=== PATIENT | female | born 1930 | race Caucasian/White ===

== ENCOUNTER 2017-02-12 10:38 | Emergency (ER) | payer OTHER, BC ==
[2017-02-12 10:48] VITALS: BP 128/78; PULSE 90; TEMP 98; BMI 21.1
--- NOTE | 2017-02-12 11:22 | PDOC ---
History of Present Illness - General History Source: Family Exam Limitations: No Limitations - History of Present Illness Initial Comments: 02/12/17 11:26 The patient is a 86-year-old female accompanied by daughter, with a significant past medical history of afib, hypertension, seizures, and early alzheimers, who presents to the ED with altered mental status. Daughter was driving the pt to an appointment with her PCP. While in the car, the pt began to complain that she was not feeling well. Soon after the patient began feeling short of breath, gasping for air, and grabbing her chest. Daughter states that the pts eyes did not appear to be rolling back and she was unsure if she was experiencing a seizure. She decided to take the pt to her PCP since she was close to the office. PCP advised the patient to report to the ED for further evaluation. Pt does report that she has not had breakfast today and did not take any of her medications. On exam, pt states that she does not recall the event but does remember being in the car. Patient denies any fever, chills, nausea or vomiting. PCP: Dr. Avila <Lakshmi Lr - Last Filed: 02/12/17 11:43> <Sol Morelos - Last Filed: 02/12/17 14:15> - General Chief Complaint: Altered Mental Status Stated Complaint: SEIZURE (PCP SENT) Time Seen by Provider: 02/12/17 11:00 Past History <Lakshmi Lr - Last Filed: 02/12/17 11:43> - Past Medical History Cardiac Disorders: Yes (a-fib) HTN: Yes Seizures: Yes (seizure) - Immunization History Immunization Up to Date: Yes - Psycho/Social/Smoking Cessation Hx Anxiety: No Suicidal Ideation: No Smoking Status: No Smoking History: Never smoked Number of Cigarettes Smoked Daily: 0 Hx Alcohol Use: No Drug/Substance Use Hx: No Substance Use Type: None <Sol Morelos - Last Filed: 02/12/17 14:15> - Past Medical History Allergies/Adverse Reactions: Allergies Allergy/AdvReac Type Severity Reaction Status Date / Time lamotrigine [From Lamictal] Allergy Intermediate Rash Verified 02/12/17 10:43 Home Medications: Ambulatory Orders Digoxin [Lanoxin -] 0.25 mg PO DAILY #0 tablet 08/11/13 Diltiazem [Cardizem -] 60 mg PO DAILY #0 tablet 08/11/13 Levetiracetam [Keppra -] 500 mg PO BID #0 tablet 08/11/13 Dabigatran Etexilate Mesylate [Pradaxa -] 150 mg PO BID #0 cap 08/14/13 Pravastatin Sodium 20 mg PO HS 04/10/15 Memantine HCl [Namenda -] 5 mg PO DAILY 02/12/17 Review of Systems - Review of Systems Able to Perform ROS?: Yes Comments:: 02/12/17 11:43 GENERAL/CONSTITUTIONAL: No fever or chills. No weakness. HEAD, EYES, EARS, NOSE AND THROAT: No change in vision. No ear pain or discharge. No sore throat. CARDIOVASCULAR: No chest pain or shortness of breath. RESPIRATORY: No cough, wheezing, or hemoptysis. SKIN: No rash GASTROINTESTINAL: No nausea, vomiting, diarrhea or constipation. GENITOURINARY: No dysuria, frequency, or change in urination. MUSCULOSKELETAL: No joint or muscle swelling or pain. No neck or back pain. NEUROLOGIC: No headache, vertigo, loss of consciousness, or change in strength/ sensation. ENDOCRINE: No increased thirst. No abnormal weight change. HEMATOLOGIC/LYMPHATIC: No anemia, easy bleeding, or history of blood clots. ALLERGIC/IMMUNOLOGIC: No hives or skin allergy. <Lakshmi Lr - Last Filed: 02/12/17 11:43> *Physical Exam - Vital Signs Last Vital Signs Temp Pulse Resp BP Pulse Ox 98 F 90 19 128/78 97 02/12/17 10:43 02/12/17 10:43 02/12/17 10:43 02/12/17 10:43 02/12/17 10:43 <Lakshmi Lr - Last Filed: 02/12/17 11:43> - Vital Signs Last Vital Signs Temp Pulse Resp BP Pulse Ox 98 F 90 19 128/78 97 02/12/17 10:43 02/12/17 10:43 02/12/17 10:43 02/12/17 10:43 02/12/17 10:43 - Physical Exam Comments: GENERAL: Awake, alert, and oriented to person (not time and place), in no acute distress HEAD: No signs of trauma EYES: PERRLA, EOMI, sclera anicteric, conjunctiva clear ENT: Auricles normal inspection, hearing grossly normal, nares patent, oropharynx clear without exudates. Moist mucosa NECK: Normal ROM, supple, no lymphadenopathy, JVD, or masses LUNGS: Breath sounds equal, clear to auscultation bilaterally. No wheezes, and no crackles HEART: Regular rate and rhythm, normal S1 and S2, no murmurs, rubs or gallops ABDOMEN: Soft, nontender, normoactive bowel sounds. No guarding, no rebound. No masses EXTREMITIES: Normal range of motion, no edema. No clubbing or cyanosis. No cords, erythema, or tenderness NEUROLOGICAL: Cranial nerves II through XII grossly intact. Normal speech, normal gait SKIN: Warm, Dry, normal turgor, no rashes or lesions noted. <Sol Morelos - Last Filed: 02/12/17 14:15> ED Treatment Course - LABORATORY CBC & Chemistry Diagram: 02/12/17 11:35 02/12/17 11:35 <Sol Morelos - Last Filed: 02/12/17 14:15> Medical Decision Making - Medical Decision Making 02/12/17 14:14 Case d/w Dr. Avila, who evaluated patient earlier today in office. No acute findings on CTH, CXR, labs, and UA. He agrees with discharge home. <Sol Morelos - Last Filed: 02/12/17 14:15> *DC/Admit/Observation/Transfer - Attestations Scribe Attestion: 02/12/17 11:44 Documentation prepared by Lakshmi Lr, acting as medical aides teacher for Sol Morelos MD. <Lakshmi Lr - Last Filed: 02/12/17 11:43> - Discharge Dispostion Admit: No <Sol Morelos - Last Filed: 02/12/17 14:15> Diagnosis at time of Disposition: Seizure Qualifiers: Convulsion type: unspecified Qualified Code(s): R56.9 - Unspecified convulsions - Discharge Dispostion Disposition: HOME Condition at time of disposition: Improved - Referrals Referrals: Lukasz Avila MD [Primary Care Provider] - - Patient Instructions Printed Discharge Instructions: DI for Seizure Disorder -- Adult
[2017-02-12] MEDS ORDERED: DIGOXIN 0.25 MG TABLET (FP) PO ONE (11:24)
[2017-02-12] MEDS ORDERED: dilTIAZem HCL 60 MG TABLET (FP) PO ONE (11:24)
[2017-02-12] MEDS ORDERED: levETIRAcetam 500 MG TABLET (FP) PO ONE ×2 (11:24→11:58)
[2017-02-12] MEDS ORDERED: MEMANTINE HCL 5 MG TABLET (UD) PO ONE (11:24)
[2017-02-12 11:57] LABS: BASOPHIL 0.6 % (0-2.0); EOSINOPHIL 0.5 % (0-4.5); MCH 31.2 pg (25.7-33.7); MCHC 33.2 g/dl (32.0-36.0); MEAN CELL VOLUME 93.9 fl (80-96); MEAN PLT VOLUME 7.3 fl (7.5-11.1); PLATELET COUNT 193 K/MM3 (134-434); RDW 13.6 % (11.6-15.6)
[2017-02-12] MEDS ORDERED: DIGOXIN 0.25 MG TABLET (FP) ONE (11:57)
[2017-02-12] MEDS ORDERED: dilTIAZem HCL 60 MG TABLET (FP) ONE (11:57)
[2017-02-12 12:23] LABS: INR 1.28 (0.82-1.09); PROTHROMBIN TIME (PATIENT) 14.1 SEC (9.98-11.88)
[2017-02-12 12:47] LABS: ALBUMIN 3.8 g/dl (3.4-5.0); ANION GAP 7 (8-16); BILIRUBIN,TOTAL 0.6 mg/dL (0.2-1.0); CALCIUM 9.1 mg/dL (8.5-10.1); CO2 30 mmol/L (21-32); CREATININE 0.7 mg/dL (0.55-1.02); GLUCOSE,RANDOM 97 mg/dL (74-106); SGOT/AST 16 U/L (15-37); SGPT/ALT 22 U/L (12-78); TOT PROT 7.3 g/dl (6.4-8.2)
[2017-02-12 12:59] LABS: ALK PHOS 54 U/L (45-117); DIGOXIN LEVEL 1.1819 ng/ml (0.8-2.0)
[2017-02-12 13:39] LABS: URINE APPEARANCE CLEAR; URINE BILIRUBIN NEGATIVE (NEGATIVE); URINE BLOOD NEGATIVE (NEGATIVE); URINE COLOR YELLOW; URINE GLUCOSE (UA) NEGATIVE (NEGATIVE); URINE KETONE NEGATIVE (NEGATIVE); URINE LEUK ESTERASE TRACE (NEGATIVE); URINE NITRITE NEGATIVE (NEGATIVE); URINE PROTEIN NEGATIVE (NEGATIVE); URINE UROBILINOGEN NEGATIVE mg/dL (0.2-1.0)
[2017-02-12 14:49] LABS: URINE MUCUS RARE; URINE RBC 15 /hpf (0-3); URINE WBC 3 /hpf (3-5)
--- NOTE | 2017-02-13 13:33 | EKG ---
Test Reason : Blood Pressure : / mmHG Vent. Rate : 098 BPM Atrial Rate : 113 BPM P-R Int : 000 ms QRS Dur : 066 ms QT Int : 330 ms P-R-T Axes : 000 -04 -30 degrees QTc Int : 421 ms ATRIAL FIBRILLATION NONSPECIFIC ST AND T WAVE ABNORMALITY ABNORMAL ECG WHEN COMPARED WITH ECG OF 10-APR-2015 10:08, NO SIGNIFICANT CHANGE WAS FOUND Confirmed by ALIX POTTER, CROW ([id number]) on 02/13/2017 1:32:42 PM Referred By: Confirmed By:CROW THOMSON MD
== END 2017-02-12 14:42 | disposition home or self-care (01) ==
LOC: JER 10:38
DX: R56.9 Unspecified convulsions (principal); I10 Essential (primary) hypertension; I48.91 Unspecified atrial fibrillation; G30.0 Alzheimer's disease with early onset
CPT/HCPCS: 36415; 70450-TC; 71010-TC; 80053; 80162; 81003; 81015; 85025; 85610; 87086; 93005; 93010; 99283-25

== ENCOUNTER 2017-07-19 07:04 | Observation (INO) | payer OTHER, BC ==
--- NOTE | 2017-07-19 08:44 | PDOC ---
History of Present Illness - General History Source: Patient Exam Limitations: No Limitations - History of Present Illness Initial Comments: 07/19/17 13:10 The patient is a 87-year-old female with a significant past medical history of a -fib (on pradaxa), HTN, seizures (on keppra), and mild dementia, who presents to the emergency department s/p unwitnessed fall from home and lip laceration/ facial trauma at 4:30 am today. As per daughter, the patient was in her usual state of health yesterday. Patient reports she was going to the bathroom for a bowel movement and to urinate. Patient states she remembers sitting on the toilet bowl and getting up to clean. She reports she began to feel unwell and dizzy. Patient does not recall whether she had pain. Patient is unable to recall exact circumstances of the injury. As per daughter, the patient called out for help at 5 am and was found on the floor. Daughter observed loose stools and blood on the bathroom floor. Daughter reports the patient was shaking due to cold, and the patient required assistance going back to her room. At baseline , the patient is ambulatory without assistance. Daughter noticed a large upper lip laceration. The patient reports associated nasal tenderness. As per daughter , the patients head was not near the loose stools. Patients last tetanus shot was 4-5 years ago. Patient did not take her medications this morning. Upon interview, the patient denies chest pain, neck pain, shortness of breath, and headache. The patient denies fever, chills, abdominal pain, nausea, vomit, and constipation. Allergies: lamotrigine (from Lamictal) PCP: Dr. Avila <Jahaira Marx - Last Filed: 07/19/17 13:35> - History of Present Illness Initial Comments: 07/19/17 08:42 <Bud Alatorre - Last Filed: 07/20/17 07:44> - General Chief Complaint: Injury Stated Complaint: FALL/ INJURY TO MOUTH Time Seen by Provider: 07/19/17 08:14 Past History <Jahaira Marx - Last Filed: 07/19/17 13:35> - Past Medical History Cardiac Disorders: Yes (a-fib) COPD: No HTN: Yes Seizures: Yes (seizure) - Immunization History Immunization Up to Date: Yes - Suicide/Smoking/Psychosocial Hx Smoking Status: No Smoking History: Never smoked Have you smoked in the past 12 months: No Number of Cigarettes Smoked Daily: 0 Information on smoking cessation initiated: No Hx Alcohol Use: No Drug/Substance Use Hx: No Substance Use Type: None <Bud Alatorre - Last Filed: 07/20/17 07:44> - Past Medical History Allergies/Adverse Reactions: Allergies Allergy/AdvReac Type Severity Reaction Status Date / Time lamotrigine [From Lamictal] Allergy Intermediate Rash Verified 07/19/17 07:28 Home Medications: Ambulatory Orders Digoxin [Lanoxin -] 0.25 mg PO DAILY #0 tablet 08/11/13 Diltiazem [Cardizem -] 60 mg PO DAILY #0 tablet 08/11/13 Levetiracetam [Keppra -] 500 mg PO BID #0 tablet 08/11/13 Dabigatran Etexilate Mesylate [Pradaxa -] 150 mg PO BID #0 cap 08/14/13 Pravastatin Sodium 20 mg PO HS 04/10/15 Memantine HCl [Namenda -] 5 mg PO HS 02/12/17 Review of Systems - Review of Systems Able to Perform ROS?: Yes Comments:: 07/19/17 13:10 CONSTITUTIONAL: No reported: Fever, Chills, Diaphoresis, Generalized Weakness, Malaise, Loss of Appetite HEENT: (+) lip laceration No reported: Rhinorrhea, Nasal Congestion, Throat Pain, Throat Swelling, Difficulty Swallowing, Mouth Swelling, Ear Pain, Eye Pain, Visual Changes CARDIOVASCULAR: No reported: Chest Pain, Syncope, Palpitations, Irregular Heart Rate, Lightheadedness, Peripheral Edema RESPIRATORY: No reported: Cough, Shortness of Breath, SOB with Exertion, Orthopnea, Wheezing , Stridor, Hemoptysis GASTROINTESTINAL: No reported: Abdominal pain, Abdominal Distension, Nausea, Vomiting, Diarrhea, Constipation, Melena, Hematochezia GENITOURINARY: No reported: Dysuria, Frequency, Urgency, Hesitancy, Flank Pain, Genital Pain MUSCULOSKELETAL: No reported: Myalgia, Arthralgia, Joint Swelling, Back pain, Neck Pain SKIN: No reported: Rash, Itching, Pallor HEMEATOLOGIC/IMMUNOLOGIC: No reported: Easy Bleeding, Easy Bruising, Lymphadenopathy, Frequent infections ENDOCRINE: No reported: Unexplained Weight Gain, Unexplained Weight Loss, Heat Intolerance , Cold Intolerance NEUROLOGIC: No reported: Headache, Focal Weakness, Paresthesias, Vertigo, Lightheadedness, Unsteady Gait, Seizure, Mental Status Changes, Incontinence PSYCHIATRIC: No reported: Anxiety, Depression <Jahaira Marx - Last Filed: 07/19/17 13:35> *Physical Exam - Vital Signs Last Vital Signs Temp Pulse Resp BP Pulse Ox 97.7 F 114 H 18 124/58 98 07/19/17 07:28 07/19/17 07:28 07/19/17 07:28 07/19/17 07:28 07/19/17 09:04 - Physical Exam Comments: 07/19/17 13:10 GENERAL: The patient is awake, alert, and fully oriented, Nontoxic - in no acute distress. HEAD: Normocephalic, through and through laceration on uppper lip that crosses bre border, poor dentition. Mild tenderness in the maxilla midline EYES: extraocular movements intact, sclera anicteric, conjunctiva clear. ENT: Normal voice, Moist mucous membranes. NECK: Normal range of motion, supple, No midline spinal tenderness in cervical/ thoracic/lumbar region. LUNGS: Breath sounds equal, clear to auscultation bilaterally. No wheezes, no rhonchi, no rales. HEART: irregularly iregular ABDOMEN: Soft, nontender, normoactive bowel sounds. No guarding, no rebound. . No CVA tenderness EXTREMITIES: Normal range of motion without any pain/tenderness, no edema. No clubbing or cyanosis. No cords, erythema, or tenderness. NEUROLOGICAL: No facial assymetry, Normal speech, PSYCH: Normal mood, normal affect. SKIN: Warm, Dry, normal turgor <Jahaira Marx - Last Filed: 07/19/17 13:35> - Vital Signs Last Vital Signs Temp Pulse Resp BP Pulse Ox 97.7 F 114 H 18 124/58 97 07/19/17 07:28 07/19/17 07:28 07/19/17 07:28 07/19/17 07:28 07/19/17 07:28 <Bud Alatorre - Last Filed: 07/20/17 07:44> Procedures - Consent Consent obtained: Verbal - Laceration/Wound Repair Upper Lip Wound Length: 2.6 to 5.0 cm Wound Explored: clean Wound's Depth, Shape: superficial Irrigated w/ Saline: Yes Anesthesia: 1% Lidocaine Wound Debrided: minimal Wound Repaired With: Sutures Suture Size/Type: 4:0 Number of Sutures: 7 Layer Closure: No <Bud Alatorre - Last Filed: 07/20/17 07:44> Heart Score/ECG Review - ECG Impressions Comment:: 07/19/17 09:47 Twelve-lead EKG was performed and reviewed by me. Irregularly irregular Rate of [address]-T wave changes <Bud Alatorre - Last Filed: 07/20/17 07:44> ED Treatment Course - LABORATORY CBC & Chemistry Diagram: 07/19/17 09:41 07/19/17 09:41 - ADDITIONAL ORDERS Additional order review: Laboratory Results 07/19/17 09:41 PT with INR 15.00 H INR 1.33 H 07/19/17 09:41 RBC 4.86 MCV 94.4 MCHC 32.9 RDW 13.4 MPV 7.2 L Neutrophils % 89.6 H D Lymphocytes % 6.2 L D Monocytes % 3.7 L Eosinophils % 0.3 Basophils % 0.2 - RADIOLOGY Radiograph Interpretation: 07/19/17 11:20 RAD/CXR PORTABLE IMPRESSION: No evidence of active pulmonary disease. Reported by: Dr. Garfield Decker HEAD CT W/O CONTRAST IMPRESSION: No significant interval change or acute intracranial pathology is identified. Reported by: Dr. Ch FACIAL BONES CT W/O CONTRAST IMPRESSION: No evidence of acute facial bone fracture. Reported by: Dr. Perez - Additional Consults Time Called: 11:43 (Paged Dr. Chaudhary) Time Called: 12:35 (Second page to Dr. Chaudhary) Consult/PCP: Page returned by Dr. Chaudhary. <Jahaira Marx - Last Filed: 07/19/17 13:35> - LABORATORY CBC & Chemistry Diagram: 07/19/17 09:41 07/19/17 09:41 <Bud Alatorre - Last Filed: 07/20/17 07:44> Medical Decision Making - Medical Decision Making 07/19/17 09:34 87y F hx of dementia, afib on pradaxa, seizure, htn presents s/p syncope. +lip laceration/facial trauma no overt pain, sob, diaphoersis, n/v, prior to syncope, but pt states she just diddnt feel right. on exam pt has through and throuhg lip lac that will need repair tetanus UTD per family consider ?seizure in ddx will obtain CT head, facial bones to r/o bleed, fx will obtain blood work to screen for anemia, metabolic dernagment, acs [facility] pt on telemetry for arrhtmia 07/19/17 11:39 laceration closed by resident Demetrio with good approximation I was there for tracy portions of the procedure pts ct head, facial bones neg labs unremarkable will place in tele metry observatoin for arrythmia monitoring wlil notify dr. sanz regarding admission 07/19/17 12:[address] stephanie butler with tele observation requested ocnsultation from cardiology and neurology (Lindsey/Abhishek) Case discussed in detail with admitting physician including history, physical exam and ancillary studies. Admitting physician has assumed care for the patient, will follow all pending diagnostics and will complete the evaluation and treatment. <Bud Alatorre - Last Filed: 07/20/17 07:44> *DC/Admit/Observation/Transfer - Attestations Scribe Attestion: 07/19/17 13:11 Documentation prepared by Jahaira Marx, acting as medical staff director for Bud Alatorre MD, /DO. <Jahaira Marx - Last Filed: 07/19/17 13:35> - Discharge Dispostion Admit: Yes <Bud Alatorre - Last Filed: 07/20/17 07:44> Diagnosis at time of Disposition: Anticoagulant long-term use Atrial fibrillation Qualifiers: Atrial fibrillation type: chronic Qualified Code(s): I48.2 - Chronic atrial fibrillation Syncope Qualifiers: Syncope type: unspecified Qualified Code(s): R55 - Syncope and collapse Lip laceration Qualifiers: Encounter type: initial encounter Qualified Code(s): S01.511A - Laceration without foreign body of lip, initial encounter Head injury due to trauma Qualifiers: Encounter type: initial encounter Qualified Code(s): S09.90XA - Unspecified injury of head, initial encounter - Discharge Dispostion Condition at time of disposition: Stable
[2017-07-19 10:08] LABS: BASO % 0.2 % (0-2.0); EOS % 0.3 % (0-4.5); HEMATOCRIT 45.9 % (32.4-45.2); HEMOGLOBIN 15.1 GM/dL (10.7-15.3); LYMPH % 6.2 % (8-40); MCHC 32.9 g/dl (32.0-36.0); MEAN CELL VOLUME 94.4 fl (80-96); MEAN PLT VOLUME 7.2 fl (7.5-11.1); MONO % 3.7 % (3.8-10.2); NEUT % 89.6 % (42.8-82.8); PLATELET COUNT 198 K/MM3 (134-434); RBC 4.86 M/mm3 (3.60-5.2); RDW 13.4 % (11.6-15.6); WHITE BLOOD COUNT 12.1 K/mm3 (4.0-10.0)
[2017-07-19 10:32] LABS: INR 1.33 (0.82-1.09)
[2017-07-19] MEDS ORDERED: LIDOCAINE HCL 2% (20ML MULTI-DOSE VIAL) NR ONE (10:42)
[2017-07-19 11:03] LABS: ALBUMIN 3.8 g/dl (3.4-5.0); ANION GAP 7 (8-16); BLOOD UREA NITROGEN 18 mg/dL (7-18); CALCIUM 9.4 mg/dL (8.5-10.1); CHLORIDE 106 mmol/L (98-107); CO2 28 mmol/L (21-32); CREATININE 0.8 mg/dL (0.55-1.02); GLUCOSE,RANDOM 106 mg/dL (74-106); POTASSIUM 5.4 mmol/L (3.5-5.1); SGOT/AST 18 U/L (15-37); SGPT/ALT 18 U/L (12-78); SODIUM 141 mmol/L (136-145)
[2017-07-19 11:08] LABS: ALK PHOS 61 U/L (45-117); BILIRUBIN,TOTAL 0.5 mg/dL (0.2-1.0); TOT PROT 7.7 g/dl (6.4-8.2)
[2017-07-19] MEDS ORDERED: DIGOXIN 0.25 MG TABLET (FP) PO ONE (11:38)
[2017-07-19] MEDS ORDERED: levETIRAcetam 500 MG TABLET (FP) PO ONE ×2 (11:38→21:54)
[2017-07-19] MEDS ORDERED: dilTIAZem HCL 60 MG TABLET (FP) PO ONE (11:38)
[2017-07-19 13:52] LABS: CHOLESTEROL 220 mg/dL (50-200); MAGNESIUM 2.4 mg/dL (1.8-2.4); TRIGLYCERIDES 93 mg/dL (35-160)
[2017-07-19 14:10] LABS: HDL CHOLESTEROL 66 mg/dL (40-60); LDL CHOLESTEROL (ONLY SJRH) 136 mg/dL (5-100)
--- NOTE | 2017-07-19 16:35 | EKG ---
Test Reason : Blood Pressure : / mmHG Vent. Rate : 118 BPM Atrial Rate : 241 BPM P-R Int : 000 ms QRS Dur : 070 ms QT Int : 270 ms P-R-T Axes : 000 004 209 degrees QTc Int : 378 ms ATRIAL FIBRILLATION WITH RAPID VENTRICULAR RESPONSE ABNORMAL ECG WHEN COMPARED WITH ECG OF 12-FEB-2017 11:39, T WAVE INVERSION NOW EVIDENT IN LATERAL LEADS CLINICAL CORRELATION IS RECOMMENDED Confirmed by ALIX POTTER, CROW ([id number]) on 07/19/2017 4:35:34 PM Referred By: Confirmed By:CROW THOMSON MD
--- NOTE | 2017-07-19 16:48 | CON.CARD ---
Consult Consult Specialty:: cardiology Referred by:: hospitalist (paulina sanz) - History of Present Illness Chief Complaint: syncope History of Present Illness: 87 yo female presents to the emergency department s/p unwitnessed fall from home and lip laceration. per ER notes: Patient reported she was going to the bathroom for a bowel movement and to urinate. Patient stated she remembers sitting on the toilet bowl and getting up to clean. She reports she began to feel unwell and dizzy. She was unable to recall exact circumstances of the injury. As per daughter, the patient called out for help at 5 am and dtr found her on the floor. Daughter observed loose stools and blood on the bathroom floor, and noted large lac on patient's lip. At present, pt does not recall details that occurred in the bathroom or the prodromal sx's she had. she's had no new neuro deficits noted in ER, dtrs concur. she ambulates on her own at baseline. she rarely drinks po fluids b/c doesn't want to have to urinate often--dtr states pt has been advised many times the need to incr fluids but she's declined. pt currently denies new neuro deficit, cp, sob, palpitations PMH: afib HTN seizure disorder - Past Medical History Cardio/Vascular: Yes: AFIB, HTN, Hyperlipdemia - Past Surgical History Past Surgical History: Yes: Cataract Removal - Alcohol/Substance Use Hx Alcohol Use: No History of Substance Use: reports: None - Smoking History Smoking history: Never smoked Have you smoked in the past 12 months: No Aproximately how many cigarettes per day: 0 - Social History ADL: Independent History of Recent Travel: No Home Medications - Allergies Allergies/Adverse Reactions: Allergies Allergy/AdvReac Type Severity Reaction Status Date / Time lamotrigine [From Lamictal] Allergy Intermediate Rash Verified 07/19/17 07:28 - Home Medications Home Medications: Ambulatory Orders Digoxin [Lanoxin -] 0.25 mg PO DAILY #0 tablet 08/11/13 Diltiazem [Cardizem -] 60 mg PO DAILY #0 tablet 08/11/13 Levetiracetam [Keppra -] 500 mg PO BID #0 tablet 08/11/13 Dabigatran Etexilate Mesylate [Pradaxa -] 150 mg PO BID #0 cap 08/14/13 Pravastatin Sodium 20 mg PO HS 04/10/15 Memantine HCl [Namenda -] 5 mg PO HS 02/12/17 Family Disease History - Family Disease History Family Disease History: Other: Daughter (arthritis) Review of Systems - Review of Systems Constitutional: denies: Chills, Fever Eyes: denies: Eye Pain HENT: denies: Nasal Congestion Neck: denies: Stiffness Cardiovascular: denies: Palpitations Respiratory: denies: Orthopnea, PND Gastrointestinal: denies: Diarrhea, Rectal Bleeding Genitourinary: denies: Burning, Hematuria Musculoskeletal: denies: Muscle Pain Integumentary: denies: Rash Neurological: reports: Syncope. denies: Numbness, Seizure Endocrine: denies: Excessive Sweating Hematology/Lymphatic: denies: Excessive Bleeding Vital Signs: Vital Signs Temperature 97.7 F 07/19/17 07:28 Pulse Rate 98 H 07/19/17 15:10 Respiratory Rate 18 07/19/17 15:10 Blood Pressure 91/60 07/19/17 15:10 O2 Sat by Pulse Oximetry (%) 96 07/19/17 15:10 Constitutional: Yes: Well Nourished, No Distress Eyes: No: Sclera Icterus HENT: No: Nasal Congestion Neck: No: Decreased ROM Respiratory: Yes: CTA Bilaterally. No: Accessory Muscle Use, Rales, Wheezes Gastrointestinal: Yes: Normal Bowel Sounds. No: Distention, Hepatomegaly, Palpable Mass, Tenderness Cardiovascular: Yes: Regular Rate and Rhythm JVD: No Carotid Bruit: No PMI: Non-Displaced Heart Sounds: Yes: S1, S2. No: Gallop Murmur: No: Systolic Murmur, Diastolic Murmur Musculoskeletal: Yes: Other (No kyphosis) Extremities: No: Cold, Cyanosis Edema: No Peripheral Pulses: 2+ Left Carotid, 2+ Right Carotid, 2+ Left Doralis Pedis, 2+ Right Dorsalis Pedis Integumentary: No: Jaundice Neurological: Yes: Alert. No: Seizure Psychiatric: No: Agitated - Other Data Labs, Other Data: CBC, BMP 07/19/17 09:41 07/19/17 09:41 INR, PTT INR 1.33 (0.82-1.09) H 07/19/17 09:41 Troponin, BNP 07/19/17 09:41 Troponin I < 0.02 Troponin, BNP 07/19/17 09:41 Troponin I < 0.02 Assessment/Plan ECG: afib; diffuse NSST-T slightly more prominent than prior CXR: clear lungs/pleura CT head: no acute path (no old infarct) Echo 04/2015: normal LV/RV size and function, mod TR, normal RVSP h/o syncope: -here 2014 with syncope x 2 on DOA--once bending over to get something, once standing and walking. orthostatic VSs were WNL then, telemetry was benign (afib with good HR control). -now back with unwitnessed syncope--setting in which it occurred (post- defecation) and prodrome are both suggestive of vasovagal event. -rec neuro eval to r/o sz given feces noted on floor. -check orthostatics. -monitor telemetry -rpt echo -doubt atyp ACS; ECG ST-Ts at baseline slightly more pronounced here. check serial troponins -pt and dtrs advised of importance of po hydration, though the family is very skeptical she will do so. -trial of abdominal binder here. permanent Afib: -previous regimen here in 2014 was digoxin, diltiazem with good HR control then -cont dilt, dig for now (level good here). confirm home doses (digoxin 0.25? diltiazem 60 daily?). -has been on pradaxa for AC as outpt, patricia jose. -would not rec continuing this agent given pt's falls/head trauma risk. while there's an antidote available, many (all?) observational studies show a higher rate of bleeding with pradaxa than eliquis or xarelto. since eliquis appears to have the lowest bleeding rates, would change to this agent (5 bid dose). -CHADS VASC = 4, approx 4%/year risk of stroke. -given pt's syncope was highly likely due to vasovagal phenomenon, recommend aggressive measures at preventing vasovagal syncope recurrence, as above. -if these efforts fail (hydration likely not to improve per family--see above), and if pt has another event, then at that time would recommend against long- term anticoagulation given the hi risks of head trauma in that setting (likely > sroke risk above), and would rec LA appendage closure (Watchman) be considered. -she needs close outpt cardio f/u to optimize syncope risk as above, and make appropriate rec.s going forward--family verbalized understanding of need to f/u with dr jose. HTN: -well controlled -tolerate mild elevations to minimize risk of recurrent syncope h/o sz disorder -on meds as outpt
[2017-07-19 17:44] VITALS: BMI 21.2
[2017-07-19 19:21] LABS: URINE APPEARANCE SLCLOUDY; URINE BILIRUBIN NEGATIVE (NEGATIVE); URINE BLOOD NEGATIVE (NEGATIVE); URINE COLOR YELLOW; URINE GLUCOSE (UA) NEGATIVE (NEGATIVE); URINE KETONE NEGATIVE (NEGATIVE); URINE NITRITE NEGATIVE (NEGATIVE); URINE PROTEIN NEGATIVE (NEGATIVE)
[2017-07-19 19:49] LABS: URINE LEUK ESTERASE 3+ (NEGATIVE)
[2017-07-19 19:50] LABS: EPI CELLS RARE /HPF (FEW); URINE MUCUS MODERATE
--- NOTE | 2017-07-19 21:04 | HP ---
Admitting History and Physical - Primary Care Physician PCP: Lukasz Avila - Admission Chief Complaint: Transient Loss of Conciousness with Head trauma History of Present Illness: 87 yrs old F lives at home H/o HTN, Chronic Afib, Dementia, Seizures disorders brought in by family for evaluation of unwitnessed fall with transient loss of consciousness and facial richardson, apparently patient was in toilet remember sitting on toilet and passed urine and defecated, felt dizzy and unwell when tried to get to wash and landed on the floor daughter found her on the floor, bleeding from lip and soiled in feces and urine, patient was alert but confused, no witnessed seizure or focal wetness, patient provided consistent account of event to daughters and providers, no c/o chest pain, SOB, palpitayion, vomiting or focal weakness, on arrival to ED EKG afib with RVR and non specific St T changes, lip tear stiched and patient is evaluated by Cardiology consult is being admitted to for evaluation of syncope, at the time of examination patient denies any chest pain, dfocal weakness or Heda ache Ct Head no acute changes. - Past Medical History Cardiovascular: Yes: AFIB, HTN, Hyperlipdemia - Past Surgical History Past Surgical History: Yes: Cataract Removal - Smoking History Smoking history: Never smoked Have you smoked in the past 12 months: No Aproximately how many cigarettes per day: 0 - Alcohol/Substance Use Hx Alcohol Use: No History of Substance Use: reports: None - Social History ADL: Independent History of Recent Travel: No Home Medications - Allergies Allergies/Adverse Reactions: Allergies Allergy/AdvReac Type Severity Reaction Status Date / Time lamotrigine [From Lamictal] Allergy Intermediate Rash Verified 07/19/17 07:28 - Home Medications Home Medications: Ambulatory Orders Digoxin [Lanoxin -] 0.25 mg PO DAILY #0 tablet 08/11/13 Diltiazem [Cardizem -] 60 mg PO DAILY #0 tablet 08/11/13 Levetiracetam [Keppra -] 500 mg PO BID #0 tablet 08/11/13 Dabigatran Etexilate Mesylate [Pradaxa -] 150 mg PO BID #0 cap 08/14/13 Pravastatin Sodium 20 mg PO HS 04/10/15 Memantine HCl [Namenda -] 5 mg PO HS 08/11/17 Family Disease History - Family Disease History Family Disease History: Other: Daughter (arthritis) Review of Systems - Review of Systems Constitutional: reports: No Symptoms HENT: reports: Other (Trauma) Neck: denies: Decreased ROM, Lumps Cardiovascular: denies: Chest Pain, Edema Respiratory: denies: Cough, Exercise Intolerance Gastrointestinal: denies: Abdominal Pain, Bloating Genitourinary: denies: Burning, Discharge Musculoskeletal: denies: Back Pain, Crepitus Integumentary: reports: Wound Neurological: reports: Change in LOC. denies: Change in Speech, Numbness, Parasthesia Hematology/Lymphatic: denies: Easily Bruised, Excessive Bleeding Psychiatric: reports: No Symptoms Physical Examination Vital Signs: Vital Signs Temperature 97.7 F 07/19/17 07:28 Pulse Rate 88 07/19/17 17:17 Respiratory Rate 16 07/19/17 17:17 Blood Pressure 112/59 07/19/17 17:17 O2 Sat by Pulse Oximetry (%) 95 07/19/17 17:17 Elderly f comfortable no c/o chest pain or SOB HEENT: Mm moist no anemia, lacerated upper Lip stitched minimal bleeding NECK; No JVD No Bruit, Supple CHEST: CTA b/L CVS: S1S2 Irr no m/g/r ABd No distention, non tender Bs + EXT; No edema feet, no calf tenderness HAND TIRE TRIMMER: AOx3 non focal Labs: CBC, BMP 07/19/17 09:41 07/19/17 09:41 Imaging - Results X-ray: Report Reviewed (Unremarkanle) EKG: Report Reviewed (Afib with HR 118) Other: Report Reviewed (CT head no intracranial changes) Problem List - Problems (1) Transient loss of consciousness Assessment/Plan: Most Likely Neuro Cardiogenic , evaluated by Cardiology consult will F/U ECHO< Holter, monitoring, Neuro Check and ECHO cardiogram, Po Hydration and F/U clinical course Code(s): R55 - SYNCOPE AND COLLAPSE (2) Head injury due to trauma Assessment/Plan: No Intracranial trauma cont close observation. Code(s): S09.90XA - UNSPECIFIED INJURY OF HEAD, INITIAL ENCOUNTER Qualifiers: Encounter type: initial encounter Qualified Code(s): S09.90XA - Unspecified injury of head, initial encounter (3) Atrial fibrillation Assessment/Plan: On Diltizem, Digoxine, and AC F/U Dig level optimize rtae control as per cardiology recommendation. Code(s): I48.91 - UNSPECIFIED ATRIAL FIBRILLATION Qualifiers: Atrial fibrillation type: chronic Qualified Code(s): I48.2 - Chronic atrial fibrillation (4) Hyperlipemia Assessment/Plan: Cont Sttain Code(s): E78.5 - HYPERLIPIDEMIA, UNSPECIFIED (5) Seizure Assessment/Plan: On Keppra, needs Neurology consult to R/O Breakthrough seizure. Code(s): R56.9 - UNSPECIFIED CONVULSIONS Qualifiers: Convulsion type: unspecified Qualified Code(s): R56.9 - Unspecified convulsions (6) Lip laceration Assessment/Plan: Stiched and cleaned Code(s): S01.511A - LACERATION WITHOUT FOREIGN BODY OF LIP, INITIAL ENCOUNTER Qualifiers: Encounter type: initial encounter Qualified Code(s): S01.511A - Laceration without foreign body of lip, initial encounter (7) Hypertension Assessment/Plan: Cont all home meds Code(s): I10 - ESSENTIAL (PRIMARY) HYPERTENSION (8) UTI (urinary tract infection) Assessment/Plan: Ceftraixone 1 gm daily F/U Cultures, patient is asymptomatic mild elevation of TWBC> Code(s): N39.0 - URINARY TRACT INFECTION, SITE NOT SPECIFIED
[2017-07-19] MEDS ORDERED: ATORVASTATIN CA 40 MG TABLET (FP) ONE (21:54)
[2017-07-19] MEDS ORDERED: DABIGATRAN ETEXILATE MESYLATE 150 MG CAPSULE PO SCH (22:00)
[2017-07-19] MEDS: levETIRAcetam 500 MG TABLET (FP) PO SCH (22:02)
[2017-07-19] MEDS: ATORVASTATIN CA 10 MG TABLET (FP) PO SCH (22:02)
[2017-07-20 07:45] LABS: BASO % 0.3 % (0-2.0); EOS % 3.6 % (0-4.5); HEMATOCRIT 41.5 % (32.4-45.2); HEMOGLOBIN 13.8 GM/dL (10.7-15.3); MCH 31.1 pg (25.7-33.7); MCHC 33.1 g/dl (32.0-36.0); MEAN CELL VOLUME 93.8 fl (80-96); MEAN PLT VOLUME 7.6 fl (7.5-11.1); MONO % 8.2 % (3.8-10.2); NEUT % 65.9 % (42.8-82.8); PLATELET COUNT 183 K/MM3 (134-434); RBC 4.43 M/mm3 (3.60-5.2); RDW 13.3 % (11.6-15.6)
[2017-07-20 08:46] LABS: ANION GAP 12 (8-16); BLOOD UREA NITROGEN 15 mg/dL (7-18); CALCIUM 8.5 mg/dL (8.5-10.1); CHLORIDE 105 mmol/L (98-107); CO2 24 mmol/L (21-32); CREATININE 0.7 mg/dL (0.55-1.02); GLUCOSE,RANDOM 94 mg/dL (74-106); POTASSIUM 4.2 mmol/L (3.5-5.1); SODIUM 141 mmol/L (136-145)
--- NOTE | 2017-07-20 09:54 | CONSULT ---
Consult - text type - Consultation Consultation Note: Neurology History of Present Illness The patient is a 87-year-old female with a significant past medical history of a -fib (on pradaxa), HTN, seizures (on keppra), and mild dementia, who presents to the emergency department s/p unwitnessed fall from home and lip laceration/ facial trauma. As per daughter, the patient was going to the bathroom for a bowel movement and to urinate. Patient states she remembers sitting on the toilet bowl and getting up to clean. She reports she began to feel unwell and dizzy with subsequent fall and LOC. She came to ER and CT head showed no acute changes. CT facial bones was also completed and reviewed. Lip laceration noted. She feels at baseline at this time and has been stable since admission. Cardiology following. - General Chief Complaint: Injury Stated Complaint: FALL/ INJURY TO MOUTH Time Seen by Provider: 07/19/17 08:14 Past History - Past Medical History Cardiac Disorders: Yes (a-fib) COPD: No HTN: Yes Seizures: Yes (seizure) - Immunization History Immunization Up to Date: Yes - Suicide/Smoking/Psychosocial Hx Smoking Status: No Smoking History: Never smoked Have you smoked in the past 12 months: No Number of Cigarettes Smoked Daily: 0 Information on smoking cessation initiated: No Hx Alcohol Use: No Drug/Substance Use Hx: No Substance Use Type: None - Past Medical History Allergies/Adverse Reactions: Allergies Allergy/AdvReac Type Severity Reaction Status Date / Time lamotrigine [From Lamictal] Allergy Intermediate Rash Verified 07/19/17 07:28 Home Medications: Ambulatory Orders Digoxin [Lanoxin -] 0.25 mg PO DAILY #0 tablet 08/11/13 Diltiazem [Cardizem -] 60 mg PO DAILY #0 tablet 08/11/13 Levetiracetam [Keppra -] 500 mg PO BID #0 tablet 08/11/13 Dabigatran Etexilate Mesylate [Pradaxa -] 150 mg PO BID #0 cap 08/14/13 Pravastatin Sodium 20 mg PO HS 04/10/15 Memantine HCl [Namenda -] 5 mg PO HS 02/12/17 Review of Systems No reported: Fever, Chills, Diaphoresis, Generalized Weakness, Malaise, Loss of Appetite HEENT: (+) lip laceration No reported: Rhinorrhea, Nasal Congestion, Throat Pain, Throat Swelling, Difficulty Swallowing, Mouth Swelling, Ear Pain, Eye Pain, Visual Changes CARDIOVASCULAR: No reported: Chest Pain, Syncope, Palpitations, Irregular Heart Rate, Lightheadedness, Peripheral Edema RESPIRATORY: No reported: Cough, Shortness of Breath, SOB with Exertion, Orthopnea, Wheezing , Stridor, Hemoptysis GASTROINTESTINAL: No reported: Abdominal pain, Abdominal Distension, Nausea, Vomiting, Diarrhea, Constipation, Melena, Hematochezia GENITOURINARY: No reported: Dysuria, Frequency, Urgency, Hesitancy, Flank Pain, Genital Pain MUSCULOSKELETAL: No reported: Myalgia, Arthralgia, Joint Swelling, Back pain, Neck Pain SKIN: No reported: Rash, Itching, Pallor HEMEATOLOGIC/IMMUNOLOGIC: No reported: Easy Bleeding, Easy Bruising, Lymphadenopathy, Frequent infections ENDOCRINE: No reported: Unexplained Weight Gain, Unexplained Weight Loss, Heat Intolerance , Cold Intolerance NEUROLOGIC: No reported: Headache, Focal Weakness, Paresthesias, Vertigo, Lightheadedness, Unsteady Gait, Seizure, Mental Status Changes, Incontinence PSYCHIATRIC: No reported: Anxiety, Depression *Physical Exam Vital Signs Period Temp Pulse Resp BP Sys/Parker Pulse Ox Last 24 Hr 97.6 F-98.9 F 64-99 16-19 91-138/46-67 95-96 NERAL: The patient is awake, alert, and fully oriented, Nontoxic - in no acute distress. HEAD: Normocephalic, through and through laceration on uppper lip that crosses bre border, poor dentition. Mild tenderness in the maxilla midline EYES: extraocular movements intact, sclera anicteric, conjunctiva clear. ENT: Normal voice, Moist mucous membranes. NECK: Normal range of motion, supple, No midline spinal tenderness in cervical/ thoracic/lumbar region. LUNGS: Breath sounds equal, clear to auscultation bilaterally. No wheezes, no rhonchi, no rales. HEART: irregularly iregular ABDOMEN: Soft, nontender, normoactive bowel sounds. No guarding, no rebound. . No CVA tenderness EXTREMITIES: Normal range of motion without any pain/tenderness, no edema. No clubbing or cyanosis. No cords, erythema, or tenderness. NEUROLOGICAL: No facial assymetry, Normal speech, PSYCH: Normal mood, normal affect. SKIN: Warm, Dry, normal turgor CBCD WBC 8.0 K/mm3 (4.0-10.0) D 07/20/17 05:35 RBC 4.43 M/mm3 (3.60-5.2) 07/20/17 05:35 Hgb 13.8 GM/dL (10.7-15.3) 07/20/17 05:35 Hct 41.5 % (32.4-45.2) 07/20/17 05:35 MCV 93.8 fl (80-96) 07/20/17 05:35 MCHC 33.1 g/dl (32.0-36.0) 07/20/17 05:35 RDW 13.3 % (11.6-15.6) 07/20/17 05:35 Plt Count 183 K/MM3 (134-434) 07/20/17 05:35 MPV 7.6 fl (7.5-11.1) 07/20/17 05:35 CMP Sodium 141 mmol/L (136-145) 07/20/17 05:35 Potassium 4.2 mmol/L (3.5-5.1) 07/20/17 05:35 Chloride 105 mmol/L (98-107) 07/20/17 05:35 Carbon Dioxide 24 mmol/L (21-32) 07/20/17 05:35 Anion Gap 12 (8-16) 07/20/17 05:35 BUN 15 mg/dL (7-18) 07/20/17 05:35 Creatinine 0.7 mg/dL (0.55-1.02) 07/20/17 05:35 Creat Clearance w eGFR > 60 (>60) 07/19/17 09:41 Calcium 8.5 mg/dL (8.5-10.1) 07/20/17 05:35 Total Bilirubin 0.5 mg/dL (0.2-1.0) 07/19/17 09:41 AST 18 U/L (15-37) 07/19/17 09:41 ALT 18 U/L (12-78) 07/19/17 09:41 Alkaline Phosphatase 61 U/L (45-117) 07/19/17 09:41 Total Protein 7.7 g/dl (6.4-8.2) 07/19/17 09:41 Albumin 3.8 g/dl (3.4-5.0) 07/19/17 09:41 - RADIOLOGY RAD/CXR PORTABLE IMPRESSION: No evidence of active pulmonary disease. HEAD CT W/O CONTRAST IMPRESSION: No significant interval change or acute intracranial pathology is identified. FACIAL BONES CT W/O CONTRAST IMPRESSION: No evidence of acute facial bone fracture. Plan 87-year-old female with a significant past medical history of a-fib (on pradaxa) , HTN, seizures (on keppra), and mild dementia, who presents to the emergency department s/p unwitnessed fall from home and lip laceration/facial trauma. As per daughter, the patient was going to the bathroom for a bowel movement and to urinate. Patient states she remembers sitting on the toilet bowl and getting up to clean. She reports she began to feel unwell and dizzy with subsequent fall and LOC. She came to ER and CT head showed no acute changes. CT facial bones was also completed and reviewed. Lip laceration noted. She feels at baseline at this time and has been stable since admission. Cardiology following. Likely vasovagal event. She is on Keppra and can be continued. Discussed with them outpatient followup. Can have EEG as outpatient. Neurologically, stable at this time.
[2017-07-20] MEDS: APIXABAN 5 MG TABLET PO SCH ×2 (10:01→21:04)
[2017-07-20] MEDS: CEFTRIAXONE 1 G/50 ML PREMIX 50 ML IVPB SCH (10:01)
[2017-07-20] MEDS: MEMANTINE HCL 5 MG TABLET (UD) PO SCH (10:01)
[2017-07-20] MEDS: levETIRAcetam 500 MG TABLET (FP) PO SCH ×2 (10:01→21:04)
[2017-07-20] MEDS: dilTIAZem HCL 60 MG TABLET (FP) PO SCH (10:01)
[2017-07-20] MEDS: DIGOXIN 0.25 MG TABLET (FP) PO SCH (10:02)
--- NOTE | 2017-07-20 10:54 | PN ---
Progress Note, Physician Chief Complaint: Ms Leo says she is feeling fine today. Denies cp, sob, n/v. - Current Medication List Current Medications: Active Medications Apixaban (Eliquis -) 5 mg PO BID [facility] Last Admin: 07/20/17 10:01 Dose: 5 mg Atorvastatin Calcium (Lipitor -) 10 mg PO HS [facility] Last Admin: 07/19/17 22:02 Dose: 10 mg Digoxin (Lanoxin -) 0.25 mg PO DAILY [facility] Last Admin: 07/20/17 10:02 Dose: 0.25 mg Diltiazem HCl (Cardizem -) 60 mg PO DAILY [facility] Last Admin: 07/20/17 10:01 Dose: 60 mg CEFTRIAXONE 1 G/50 ML PREMIX (Ceftriaxone 1 Gm-D5w Bag) 50 mls @ 100 mls/hr IVPB DAILY [facility] Last Admin: 07/20/17 10:01 Dose: 100 mls/hr Levetiracetam (Keppra -) 500 mg PO BID [facility] Last Admin: 07/20/17 10:01 Dose: 500 mg Memantine (Namenda -) 5 mg PO DAILY [facility] Last Admin: 07/20/17 10:01 Dose: 5 mg - Objective Vital Signs: Vital Signs Temperature 36.8 C 07/20/17 09:57 Pulse Rate 90 07/20/17 10:02 Respiratory Rate 18 07/20/17 09:57 Blood Pressure 112/49 07/20/17 09:57 O2 Sat by Pulse Oximetry (%) 95 07/20/17 01:17 Constitutional: Yes: Well Nourished, No Distress, Calm Cardiovascular: Yes: Regular Rate and Rhythm, Murmur. No: Gallop, Rub Respiratory: Yes: Regular, CTA Bilaterally. No: Rales, Rhonchi, Wheezes Gastrointestinal: Yes: Normal Bowel Sounds, Soft. No: Distention, Tenderness Extremities: Yes: WNL Edema: No Labs: CBC, BMP 07/20/17 05:35 07/20/17 05:35 INR, PTT INR 1.33 (0.82-1.09) H 07/19/17 09:41 Problem List - Problems (1) Syncope Assessment/Plan: -presentation sounds vasovagal -appreciate neurology assistance -ECHO reviewed -check orthostatic blood pressure and heart rate -hydration, patient with history of diarrhea -monitor -PT consult Code(s): R55 - SYNCOPE AND COLLAPSE Qualifiers: Syncope type: unspecified Qualified Code(s): R55 - Syncope and collapse (2) Anticoagulant long-term use Assessment/Plan: -continue eliquis Code(s): Z79.01 - PLASTICS HEAT WELDER (CURRENT) USE OF ANTICOAGULANTS (3) Atrial fibrillation Assessment/Plan: -continue cardizem, digoxin, and eliquis -rate controlled -cardiology consulted Code(s): I48.91 - UNSPECIFIED ATRIAL FIBRILLATION Qualifiers: Atrial fibrillation type: chronic Qualified Code(s): I48.2 - Chronic atrial fibrillation (4) Head injury due to trauma Assessment/Plan: -stable Code(s): S09.90XA - UNSPECIFIED INJURY OF HEAD, INITIAL ENCOUNTER Qualifiers: Encounter type: initial encounter Qualified Code(s): S09.90XA - Unspecified injury of head, initial encounter (5) Lip laceration Assessment/Plan: -sutures in place Code(s): S01.511A - LACERATION WITHOUT FOREIGN BODY OF LIP, INITIAL ENCOUNTER Qualifiers: Encounter type: initial encounter Qualified Code(s): S01.511A - Laceration without foreign body of lip, initial encounter (6) UTI (urinary tract infection) Assessment/Plan: -possible sterile pyuria -on empiric rocephin -urine culture ordered Code(s): N39.0 - URINARY TRACT INFECTION, SITE NOT SPECIFIED (7) Hyperlipemia Code(s): E78.5 - HYPERLIPIDEMIA, UNSPECIFIED (8) Hypertension Code(s): I10 - ESSENTIAL (PRIMARY) HYPERTENSION
[2017-07-20] MEDS ORDERED: SODIUM CHLORIDE 1,000 ML IV SCH (11:00)
--- NOTE | 2017-07-20 14:01 | PN ---
Progress Note (short form) - Note Progress Note: CC: syncope S: feels well. states she ambulated today without dizziness. no cp, sob, palpitations Current Medications Apixaban (Eliquis -) 5 mg PO BID [facility] Last Admin: 07/20/17 21:04 Dose: 5 mg Atorvastatin Calcium (Lipitor -) 10 mg PO HS [facility] Last Admin: 07/20/17 21:04 Dose: 10 mg Digoxin (Lanoxin -) 0.25 mg PO DAILY [facility] Last Admin: 07/20/17 10:02 Dose: 0.25 mg Diltiazem HCl (Cardizem -) 60 mg PO DAILY [facility] Last Admin: 07/20/17 10:01 Dose: 60 mg CEFTRIAXONE 1 G/50 ML PREMIX (Ceftriaxone 1 Gm-D5w Bag) 50 mls @ 100 mls/hr IVPB DAILY [facility] Last Admin: 07/20/17 10:01 Dose: 100 mls/hr Sodium Chloride (Normal Saline -) 1,000 mls @ 42 mls/hr IV ASDIR [facility] Stop: 07/21/17 10:49 Last Admin: 07/20/17 11:40 Dose: 42 mls/hr Levetiracetam (Keppra -) 500 mg PO BID [facility] Last Admin: 07/20/17 21:04 Dose: 500 mg Memantine (Namenda -) 5 mg PO DAILY [facility] Last Admin: 07/20/17 10:01 Dose: 5 mg O: Vital Signs - 24 hr 07/19/17 07/19/17 07/20/17 15:10 17:17 00:50 Temperature 97.6 F Pulse Rate 88 96 H Pulse Rate [ 98 H Apical] Pulse Rate [ Sitting] Pulse Rate [ Standing] Pulse Rate [ Supine] Respiratory 18 16 16 Rate Blood Pressure 112/59 129/62 Blood Pressure 91/60 [Right Arm] Blood Pressure [Sitting] Blood Pressure [Standing] Blood Pressure [Supine] O2 Sat by Pulse 96 95 Oximetry (%) 07/20/17 07/20/17 07/20/17 01:17 02:03 06:14 Temperature 98.9 F Pulse Rate Pulse Rate [ 99 H Apical] Pulse Rate [ 83 Sitting] Pulse Rate [ 64 Standing] Pulse Rate [ 94 H Supine] Respiratory 19 19 Rate Blood Pressure Blood Pressure 138/53 [Right Arm] Blood Pressure 98/52 [Sitting] Blood Pressure 95/46 [Standing] Blood Pressure 119/67 [Supine] O2 Sat by Pulse 95 Oximetry (%) 07/20/17 07/20/17 07/20/17 09:17 09:57 10:02 Temperature 98.3 F Pulse Rate 90 90 Pulse Rate [ Apical] Pulse Rate [ Sitting] Pulse Rate [ Standing] Pulse Rate [ Supine] Respiratory 18 18 Rate Blood Pressure 112/49 Blood Pressure [Right Arm] Blood Pressure [Sitting] Blood Pressure [Standing] Blood Pressure [Supine] O2 Sat by Pulse 98 Oximetry (%) Intake & Output 07/18/17 07/19/17 07/20/17 07/21/17 07:59 07:59 07:59 07:59 Intake Total 100 330 Balance 100 330 Weight 130 lb 121 lb Constitutional: Yes: Well Nourished, No Distress Eyes: No: Sclera Icterus HENT: No: Nasal Congestion Neck: No: Decreased ROM Respiratory: Yes: CTA Bilaterally. No: Accessory Muscle Use, Rales, Wheezes Gastrointestinal: Yes: Normal Bowel Sounds. No: Distention, Hepatomegaly, Palpable Mass, Tenderness Cardiovascular: Yes: Regular Rate and Rhythm JVD: No Carotid Bruit: No PMI: Non-Displaced Heart Sounds: Yes: S1, S2. No: Gallop Murmur: No: Systolic Murmur, Diastolic Murmur Musculoskeletal: Yes: Other (No kyphosis) Extremities: No: Cold, Cyanosis Edema: No Peripheral Pulses: 2+ Left Carotid, 2+ Right Carotid, 2+ Left Doralis Pedis, 2+ Right Dorsalis Pedis Integumentary: No: Jaundice Neurological: Yes: Alert. No: Seizure Psychiatric: No: Agitated - Other Data Labs, Other Data: CBC, BMP 07/20/17 05:35 07/20/17 05:35 Laboratory Tests 07/19/17 07/19/17 09:41 21:50 Troponin I < 0.02 < 0.02 Digoxin 1.1742 Assessment/Plan ECG: afib; diffuse NSST-T slightly more prominent than prior tele: overall rate controlled afib, 80's. but frequent runs in the 120's. CXR: clear lungs/pleura CT head: no acute path (no old infarct) Echo 07/2017: tds. grossly nl lv/rv size/fn. (EF 50-55%). No rwma. 1+ cara. mod-sev mac. mild-mod mr/tr. rvsp 33. Echo 04/2015: normal LV/RV size and function, mod TR, normal RVSP 87 yo with h/o afib, htn, hld, seizures, dementia who p/w possible syncope/ unwitnessed fall from home and lip laceration. h/o syncope: -here 2015 with syncope x 2 on DOA--once bending over to get something, once standing and walking. orthostatic VSs were WNL then, telemetry was benign (afib with good HR control). -now back with unwitnessed syncope--setting in which it occurred (post- defecation) and prodrome are both suggestive of vasovagal event. -rec neuro eval to r/o sz given report of feces noted on floor. -orthostatics positive, consider trial of abdominal binder here. con't gentle IVF. pt and dtrs advised of importance of po hydration, though the family is very skeptical she will do so. Patient endorses chronic inability to smell or taste food which she states limits her appetite -monitor telemetry -rpt echo with mod-sev mac. Otherwise similar to priors. HR control as mentioned below. -doubt atyp ACS; ECG ST-Ts at baseline slightly more pronounced here. CE's neg x 2. -bp on low end here. Monitor on low dose diltiazem. con't ivf. abx/ infectious work up per pmd. permanent Afib: -previous regimen here in 2014 was digoxin, diltiazem with good HR control then -cont home dilt, dig for now (level good here). -has been on pradaxa for AC as outpt, patricia jose. would not rec continuing this agent given pt's falls/head trauma risk. while there's an antidote available, many (all?) observational studies show a higher rate of bleeding with pradaxa than eliquis or xarelto. since eliquis appears to have the lowest bleeding rates, --> changed to eliquis 5 bid dose.. -CHADS VASC = 4, approx 4%/year risk of stroke. -given pt's syncope was highly likely due to vasovagal phenomenon, recommend aggressive measures at preventing vasovagal syncope recurrence, as above. -if these efforts fail (hydration likely not to improve per family--see above), and if pt has another event, then at that time would recommend against long- term anticoagulation given the hi risks of head trauma in that setting (likely > sroke risk above), and would rec LA appendage closure (Watchman) be considered. -she needs close outpt cardio f/u to optimize syncope risk as above, and make appropriate rec.s going forward--family verbalized understanding of need to f/u with dr jose. HTN: -Intermittently running low. On IVF. tolerate mild elevations to minimize risk of recurrent syncope. h/o sz disorder -on meds as outpt
[2017-07-20] MEDS ORDERED: PT OWN MED DRAWER 7, Y5N ONE (18:46)
[2017-07-20] MEDS: ATORVASTATIN CA 10 MG TABLET (FP) PO SCH (21:04)
[2017-07-21 08:28] LABS: BASO % 0.3 % (0-2.0); EOS % 3.6 % (0-4.5); HEMATOCRIT 41.1 % (32.4-45.2); HEMOGLOBIN 13.7 GM/dL (10.7-15.3); LYMPH % 22.6 % (8-40); MCH 31.1 pg (25.7-33.7); MCHC 33.4 g/dl (32.0-36.0); MEAN PLT VOLUME 7.3 fl (7.5-11.1); MONO % 8.6 % (3.8-10.2); NEUT % 64.9 % (42.8-82.8); PLATELET COUNT 176 K/MM3 (134-434); RBC 4.42 M/mm3 (3.60-5.2); RDW 13.4 % (11.6-15.6); WHITE BLOOD COUNT 7.2 K/mm3 (4.0-10.0)
[2017-07-21 08:34] LABS: ANION GAP 6 (8-16); BLOOD UREA NITROGEN 12 mg/dL (7-18); CALCIUM 7.8 mg/dL (8.5-10.1); CHLORIDE 107 mmol/L (98-107); CO2 27 mmol/L (21-32); CREATININE 0.6 mg/dL (0.55-1.02); GLUCOSE,RANDOM 97 mg/dL (74-106); MAGNESIUM 1.9 mg/dL (1.8-2.4); PHOSPHOROUS 3.5 mg/dL (2.5-4.9); POTASSIUM 4.1 mmol/L (3.5-5.1); SODIUM 140 mmol/L (136-145)
[2017-07-21] MEDS: MEMANTINE HCL 5 MG TABLET (UD) PO SCH (09:52)
[2017-07-21] MEDS: APIXABAN 5 MG TABLET PO SCH (09:52)
[2017-07-21] MEDS: CEFTRIAXONE 1 G/50 ML PREMIX 50 ML IVPB SCH (09:52)
[2017-07-21] MEDS: levETIRAcetam 500 MG TABLET (FP) PO SCH (09:52)
[2017-07-21] MEDS: dilTIAZem HCL 60 MG TABLET (FP) PO SCH (09:52)
[2017-07-21] MEDS: DIGOXIN 0.25 MG TABLET (FP) PO SCH (09:53)
--- NOTE | 2017-07-21 09:58 | PN ---
Progress Note (short form) - Note Progress Note: Neurology History of Present Illness The patient is a 87-year-old female with a significant past medical history of a -fib (on pradaxa), HTN, seizures (on keppra), and mild dementia, who presents to the emergency department s/p unwitnessed fall from home and lip laceration/ facial trauma. As per daughter, the patient was going to the bathroom for a bowel movement and to urinate. Patient states she remembers sitting on the toilet bowl and getting up to clean. She reports she began to feel unwell and dizzy with subsequent fall and LOC. She came to ER and CT head showed no acute changes. CT facial bones was also completed and reviewed. Lip laceration noted. She feels at baseline at this time and has been stable since admission. Cardiology following. Patient anticipating discharge. Recommended outpatient followup today as well. Active Medications Apixaban (Eliquis -) 5 mg PO BID [facility] Last Admin: 07/21/17 09:52 Dose: 5 mg Atorvastatin Calcium (Lipitor -) 10 mg PO HS [facility] Last Admin: 07/20/17 21:04 Dose: 10 mg Digoxin (Lanoxin -) 0.25 mg PO DAILY [facility] Last Admin: 07/21/17 09:53 Dose: 0.25 mg Diltiazem HCl (Cardizem -) 60 mg PO DAILY [facility] Last Admin: 07/21/17 09:52 Dose: 60 mg CEFTRIAXONE 1 G/50 ML PREMIX (Ceftriaxone 1 Gm-D5w Bag) 50 mls @ 100 mls/hr IVPB DAILY [facility] Last Admin: 07/21/17 09:52 Dose: 100 mls/hr Sodium Chloride (Normal Saline -) 1,000 mls @ 42 mls/hr IV ASDIR [facility] Stop: 07/21/17 10:49 Last Admin: 07/20/17 11:40 Dose: 42 mls/hr Levetiracetam (Keppra -) 500 mg PO BID [facility] Last Admin: 07/21/17 09:52 Dose: 500 mg Memantine (Namenda -) 5 mg PO DAILY [facility] Last Admin: 07/21/17 09:52 Dose: 5 mg *Physical Exam Vital Signs Temperature 97.9 F 07/21/17 05:46 Pulse Rate 91 H 07/21/17 09:53 Respiratory Rate 20 07/21/17 06:00 Blood Pressure 124/72 07/21/17 05:46 O2 Sat by Pulse Oximetry (%) 98 07/21/17 06:00 NERAL: The patient is awake, alert, and fully oriented, Nontoxic - in no acute distress. HEAD: Normocephalic, through and through laceration on uppper lip that crosses bre border, poor dentition. Mild tenderness in the maxilla midline EYES: extraocular movements intact, sclera anicteric, conjunctiva clear. ENT: Normal voice, Moist mucous membranes. NECK: Normal range of motion, supple, No midline spinal tenderness in cervical/ thoracic/lumbar region. LUNGS: Breath sounds equal, clear to auscultation bilaterally. No wheezes, no rhonchi, no rales. HEART: irregularly iregular ABDOMEN: Soft, nontender, normoactive bowel sounds. No guarding, no rebound. . No CVA tenderness EXTREMITIES: Normal range of motion without any pain/tenderness, no edema. No clubbing or cyanosis. No cords, erythema, or tenderness. NEUROLOGICAL: No facial assymetry, Normal speech, PSYCH: Normal mood, normal affect. SKIN: Warm, Dry, normal turgor CBCD WBC 7.2 K/mm3 (4.0-10.0) 07/21/17 06:50 RBC 4.42 M/mm3 (3.60-5.2) 07/21/17 06:50 Hgb 13.7 GM/dL (10.7-15.3) 07/21/17 06:50 Hct 41.1 % (32.4-45.2) 07/21/17 06:50 MCV 93.0 fl (80-96) 07/21/17 06:50 MCHC 33.4 g/dl (32.0-36.0) 07/21/17 06:50 RDW 13.4 % (11.6-15.6) 07/21/17 06:50 Plt Count 176 K/MM3 (134-434) 07/21/17 06:50 MPV 7.3 fl (7.5-11.1) L 07/21/17 06:50 CMP Sodium 140 mmol/L (136-145) 07/21/17 06:50 Potassium 4.1 mmol/L (3.5-5.1) 07/21/17 06:50 Chloride 107 mmol/L (98-107) 07/21/17 06:50 Carbon Dioxide 27 mmol/L (21-32) 07/21/17 06:50 Anion Gap 6 (8-16) L 07/21/17 06:50 BUN 12 mg/dL (7-18) 07/21/17 06:50 Creatinine 0.6 mg/dL (0.55-1.02) 07/21/17 06:50 Creat Clearance w eGFR > 60 (>60) 07/19/17 09:41 Calcium 7.8 mg/dL (8.5-10.1) L 07/21/17 06:50 Total Bilirubin 0.5 mg/dL (0.2-1.0) 07/19/17 09:41 AST 18 U/L (15-37) 07/19/17 09:41 ALT 18 U/L (12-78) 07/19/17 09:41 Alkaline Phosphatase 61 U/L (45-117) 07/19/17 09:41 Total Protein 7.7 g/dl (6.4-8.2) 07/19/17 09:41 Albumin 3.8 g/dl (3.4-5.0) 07/19/17 09:41 - RADIOLOGY RAD/CXR PORTABLE IMPRESSION: No evidence of active pulmonary disease. HEAD CT W/O CONTRAST IMPRESSION: No significant interval change or acute intracranial pathology is identified. FACIAL BONES CT W/O CONTRAST IMPRESSION: No evidence of acute facial bone fracture. Plan 87-year-old female with a significant past medical history of a-fib (on pradaxa) , HTN, seizures (on keppra), and mild dementia, who presents to the emergency department s/p unwitnessed fall from home and lip laceration/facial trauma. As per daughter, the patient was going to the bathroom for a bowel movement and to urinate. Patient states she remembers sitting on the toilet bowl and getting up to clean. She reports she began to feel unwell and dizzy with subsequent fall and LOC. She came to ER and CT head showed no acute changes. CT facial bones was also completed and reviewed. Lip laceration noted. She feels at baseline at this time and has been stable since admission. Cardiology following. Likely vasovagal event. She is on Keppra and can be continued. Can have EEG as outpatient. Neurologically, stable at this time. Can follow up with me as outpatient.
--- NOTE | 2017-07-21 11:29 | PN ---
Progress Note (short form) - Note Progress Note: Progress Note (short form) - Note Progress Note: CC: syncope S: feels well. states she ambulated today without dizziness. no cp, sob, palpitations Current Medications Generic Name Dose Route Start Last Admin Trade Name Kathleen PRN Reason Stop Dose Admin Apixaban 5 mg 07/20/17 10:00 07/21/17 09:52 Eliquis - PO 5 mg BID [facility] Administration Atorvastatin Calcium 10 mg 07/19/17 22:00 07/20/17 21:04 Lipitor - PO 10 mg HS [facility] Administration Digoxin 0.25 mg 07/20/17 10:00 07/21/17 09:53 Lanoxin - PO 0.25 mg DAILY [facility] Administration Diltiazem HCl 60 mg 07/20/17 10:00 07/21/17 09:52 Cardizem - PO 60 mg DAILY [facility] Administration CEFTRIAXONE 1 G/50 ML PREMIX 50 mls @ 100 mls/hr 07/20/17 10:00 07/21/17 09: 52 Ceftriaxone 1 Gm-D5w Bag IVPB 100 mls/hr DAILY [facility] Administration Levetiracetam 500 mg 07/19/17 22:00 07/21/17 09:52 Keppra - PO 500 mg BID [facility] Administration Memantine 5 mg 07/20/17 10:00 07/21/17 09:52 Namenda - PO 5 mg DAILY [facility] Administration Vital Signs Period Temp Pulse Resp BP Sys/Parker Pulse Ox Last 24 Hr 97.4 F-98.6 F 84-92 16-20 98-141/40-88 95-98 Constitutional: Yes: Well Nourished, No Distress Eyes: No: Sclera Icterus Respiratory: Yes: CTA Bilaterally. No: Accessory Muscle Use, Rales, Wheezes Gastrointestinal: Yes: Normal Bowel Sounds. No: Distention, Hepatomegaly, Palpable Mass, Tenderness Cardiovascular: Yes: Regular Rate and Rhythm JVD: No Heart Sounds: Yes: S1, S2. No: Gallop Murmur: No: Systolic Murmur, Diastolic Murmur Extremities: No: Cold, Cyanosis Edema: No Integumentary: No: Jaundice Neurological: Yes: Alert. No: Seizure Psychiatric: No: Agitated - Other Data Labs, Other Data: CBC, BMP 07/21/17 06:50 07/21/17 06:50 Assessment/Plan ECG: afib; diffuse NSST-T slightly more prominent than prior tele: overall rate controlled afib CXR: clear lungs/pleura CT head: no acute path (no old infarct) Echo 07/2017: tds. grossly nl lv/rv size/fn. (EF 50-55%). No rwma. 1+ cara. mod-sev mac. mild-mod mr/tr. rvsp 33. Echo 04/2015: normal LV/RV size and function, mod TR, normal RVSP 87 yo with h/o afib, htn, hld, seizures, dementia who p/w possible syncope/ unwitnessed fall from home and lip laceration. h/o syncope: -here 2014 with syncope x 2 on DOA--once bending over to get something, once standing and walking. orthostatic VSs were WNL then, telemetry was benign (afib with good HR control). -now back with unwitnessed syncope--setting in which it occurred (post- defecation) and prodrome are both suggestive of vasovagal event. -rec neuro eval to r/o sz given report of feces noted on floor. -orthostatics positive, consider trial of abdominal binder here. con't gentle IVF. pt and dtrs advised of importance of po hydration, though the family is very skeptical she will do so. Patient endorses chronic inability to smell or taste food which she states limits her appetite -monitor telemetry -rpt echo with mod-sev mac. Otherwise similar to priors. HR control as mentioned below. -doubt atyp ACS; ECG ST-Ts at baseline slightly more pronounced here. CE's neg x 2. -abx/infectious work up per pmd. permanent Afib: -previous regimen here in 2014 was digoxin, diltiazem with good HR control then -cont home dilt, dig for now (level good here). -has been on pradaxa for AC as outpt, seenora jose. would not rec continuing this agent given pt's falls/head trauma risk. while there's an antidote available, many observational studies show a higher rate of bleeding with pradaxa than eliquis or xarelto. since eliquis appears to have the lowest bleeding rates, --> changed to eliquis 5 bid dose. -CHADS VASC = 4, approx 4%/year risk of stroke. -given pt's syncope was highly likely due to vasovagal phenomenon, recommend aggressive measures at preventing vasovagal syncope recurrence, as above. -if these efforts fail (hydration likely not to improve per family--see above), and if pt has another event, then at that time would recommend against long- term anticoagulation given the hi risks of head trauma in that setting (likely > sroke risk above), and would rec LA appendage closure (Watchman) be considered. -she needs close outpt cardio f/u to optimize syncope risk as above, and make appropriate rec.s going forward--family verbalized understanding of need to f/u with dr jose. HTN: -Intermittently running low. On IVF. tolerate mild elevations to minimize risk of recurrent syncope. h/o sz disorder -on meds as outpt cardiac schreiber stable
--- NOTE | 2017-07-21 12:26 | DS ---
Physical Examination Vital Signs: Vital Signs Temperature 36.6 C 07/21/17 05:46 Pulse Rate 91 H 07/21/17 09:53 Respiratory Rate 20 07/21/17 06:00 Blood Pressure 124/72 07/21/17 05:46 O2 Sat by Pulse Oximetry (%) 95 07/21/17 10:00 Constitutional: Yes: Well Nourished, No Distress, Calm Cardiovascular: Yes: Regular Rate and Rhythm. No: Gallop, Murmur, Rub Respiratory: Yes: Regular, CTA Bilaterally. No: Rales, Rhonchi, Wheezes Gastrointestinal: Yes: Normal Bowel Sounds, Soft. No: Distention, Tenderness Extremities: Yes: WNL Edema: No Labs: CBC, BMP 07/21/17 06:50 07/21/17 06:50 Discharge Summary Reason For Visit: AFIB,SYNCOPE,LIP LACERATION Current Active Problems Anticoagulant long-term use (Acute) Atrial fibrillation (Acute) Head injury due to trauma (Acute) Lip laceration (Acute) Syncope (Acute) Transient loss of consciousness (Acute) UTI (urinary tract infection) (Acute) Hospital Course: (1) Syncope Code(s): R55 - SYNCOPE AND COLLAPSE Qualifiers: Syncope type: unspecified Qualified Code(s): R55 - Syncope and collapse (2) Anticoagulant long-term use Code(s): Z79.01 - PRISON (CURRENT) USE OF ANTICOAGULANTS (3) Atrial fibrillation Code(s): I48.91 - UNSPECIFIED ATRIAL FIBRILLATION Qualifiers: Atrial fibrillation type: chronic Qualified Code(s): I48.2 - Chronic atrial fibrillation (4) Head injury due to trauma Code(s): S09.90XA - UNSPECIFIED INJURY OF HEAD, INITIAL ENCOUNTER Qualifiers: Encounter type: initial encounter Qualified Code(s): S09.90XA - Unspecified injury of head, initial encounter (5) Lip laceration Code(s): S01.511A - LACERATION WITHOUT FOREIGN BODY OF LIP, INITIAL ENCOUNTER Qualifiers: Encounter type: initial encounter Qualified Code(s): S01.511A - Laceration without foreign body of lip, initial encounter (6) UTI (urinary tract infection) Code(s): N39.0 - URINARY TRACT INFECTION, SITE NOT SPECIFIED (7) Hyperlipemia Code(s): E78.5 - HYPERLIPIDEMIA, UNSPECIFIED (8) Hypertension Code(s): I10 - ESSENTIAL (PRIMARY) HYPERTENSION Mrs Leo is a very pleasant 87 year old female who came in with syncope secondary to dehydration and vasovagal response. She was having diarrhea, that has now resolved, but did not maintain hydration. Also she is not ambulating by choice and is minimally active. She stood up and passed, she came in for further evaluation. She was admitted to the hospital and seen by cardiology and neurology. Her pradaxa was changed to eliquis secondary to decreased incidence of bleeding. She was gently hydrated and she improved. Her ECHO was reviewed, she will need further outpatient follow up. She ambulated with PT and did not have dizziness with PT. Extended discussion was had about discharge planning, including recommendations for home PT. Even after encouragement patient declined home help. She is stable for discharge home. 37 minutes spent in preparation of this discharge Condition: Stable - Instructions Diet, Activity, Other Instructions: resume previous diet and activity Referrals: Lukasz Avila MD [Primary Care Provider] - Maxi Quiñonez MD [Staff Physician] - Disposition: HOME - Home Medications Comprehensive Discharge Medication List: Ambulatory Orders Digoxin [Lanoxin -] 0.25 mg PO DAILY #0 tablet 08/11/13 Diltiazem [Cardizem -] 60 mg PO DAILY #0 tablet 08/11/13 Levetiracetam [Keppra -] 500 mg PO BID #0 tablet 08/11/13 Pravastatin Sodium 20 mg PO HS 04/10/15 Memantine HCl [Namenda -] 5 mg PO HS 02/12/17 Apixaban [Eliquis -] 5 mg PO BID #60 tablet 07/21/17 Cephalexin [Keflex] 500 mg PO BID #10 capsule 07/21/17
[2017-07-21 15:25] VITALS: BP 117/53; PULSE 84; TEMP 98.2
== END 2017-07-21 18:08 | disposition home or self-care (01) ==
LOC: JER 07:04 → JERBED 12:47 → J4S 07-20 02:20
PROVIDERS: ADMIT Internal Medicine; ATTEND Internal Medicine
PROC: 0CQ0XZZ Repair Upper Lip, External Approach (ICD-10-PCS; principal; 2017-07-19)
PROC: 3E03329 Introduction of Other Anti-infective into Peripheral Vein, Percutaneous Approach (ICD-10-PCS; 2017-07-19)
PROC: 3E0337Z Introduction of Electrolytic and Water Balance Substance into Peripheral Vein, Percutaneous Approach (ICD-10-PCS; 2017-07-19)
DX: R55 Syncope and collapse (principal); S01.511A Laceration without foreign body of lip, initial encounter; S09.90XA Unspecified injury of head, initial encounter; I10 Essential (primary) hypertension; G40.909 Epilepsy, unspecified, not intractable, without status epilepticus; F03.90 Unspecified dementia, unspecified severity, without behavioral disturbance, psychotic disturbance, mood disturbance, and anxiety; E78.5 Hyperlipidemia, unspecified; N39.0 Urinary tract infection, site not specified; Z79.01 Long term (current) use of anticoagulants; W18.11XA Fall from or off toilet without subsequent striking against object, initial encounter; Y93.89 Activity, other specified; Y92.002 Bathroom of unspecified non-institutional (private) residence as the place of occurrence of the external cause
CPT/HCPCS: 12013; 36415; 70450-TC; 70486-TC; 71045-TC; 80048; 80053; 80061; 80162; 81003; 81015; 82550; 83721; 83735; 84100; 84484; 85025; 85610; 87086; 93005; 93010; 93306-TC; 97116-GP; 97161-GP; 99285-25; G0378